=== PATIENT | female | born 1965 | race African-American/Black ===

== ENCOUNTER 2019-09-22 21:32 | Inpatient (IN) | payer OTHER, MEDICAID ==
[~2019-09-22] VITALS: Ht 144.8 cm; Wt 72.6 kg
[2019-09-23] MEDS ORDERED: CLONIDINE 0.2MG TABLET PO ONE (00:45)
[2019-09-23] MEDS ORDERED: HYDROCHLOROTHIAZIDE 25MG TABLET PO ONE (00:45)
[2019-09-23 01:11] LABS: CHLORIDE 104 mEq/L (98-107)
[2019-09-23 01:17] LABS: BASOPHILS % 0.7 % (0.0-2.0); EOSINOPHILS % 0.5 % (0.0-5.0); HEMATOCRIT. 44.4 % (36.0-48.0); HEMOGLOBIN. 14.6 g/dL (12.0-16.0); LYMPHOCYTES % 20.1 % (20.0-50.0); MEAN CORPUSCULAR HEMOGLOBIN 32.6 pg (28.0-32.0); MEAN CORPUSCULAR VOLUME 99.3 fL (81.0-99.0); MEAN PLATELET VOLUME 9.8 fl (7.4-10.4); MONOCYTES % 4.7 % (2.0-8.0); PLATELET 220 x1000/uL (130-400); RED BLOOD CELL COUNT 4.47 mill/uL (4.2-5.4); RED CELL DISTRIBUTION WIDTH 17.3 % (11.6-14.6)
[2019-09-23] MEDS ORDERED: LABETALOL 5MG/ML SYR 20 MG/4 ML SYRINGE IV SCH (02:00)
[2019-09-23 05:30] VITALS: BP 157/107
[2019-09-23 06:51] VITALS: BP 157/107
[2019-09-23] MEDS ORDERED: MAGNESIUM/ALUMINUM HYDROXIDE/SIMETHICONE 30ML UDC PO PRN (07:45)
[2019-09-23] MEDS ORDERED: ONDANSETRON HCL 4MG/2ML INJ IV PRN (07:45)
[2019-09-23] MEDS ORDERED: NA PHOS,M-B/NA PHOS,DI-BA ENEMA 118ML PR PRN (07:45)
[2019-09-23] MEDS ORDERED: GUAIFENESIN 200MG/10ML SUGAR FREE UDC PO PRN (07:45)
[2019-09-23] MEDS ORDERED: DIPHENHYDRAMINE 50MG/ML VIAL IV PRN (07:45)
[2019-09-23] MEDS ORDERED: IPRATROPIUM/ALBUTEROL 0.5-3(2.5)MG/3ML NEB HHN PRN (07:45)
[2019-09-23] MEDS ORDERED: DOCUSATE SODIUM 100MG CAPSULE PO PRN (07:45)
[2019-09-23] MEDS ORDERED: AMLODIPINE 10MG TABLET PO SCH (08:00)
[2019-09-23] MEDS ORDERED: INFLUENZA VIRUS VACCINE(AFLURIA) 0.5ML SYR IM ONE (08:15)
[2019-09-23] MEDS ORDERED: METOPROLOL TARTRATE 25MG TABLET PO SCH (09:00)
[2019-09-23] MEDS: CLONIDINE 0.1MG TABLET PO PRN (09:05)
[2019-09-23] MEDS: ENOXAPARIN 40MG/0.4ML SYR SUBCUT SCH (11:03)
[2019-09-23] MEDS: BENAZEPRIL 10MG TABLET PO SCH (11:30)
[2019-09-23 11:39] LABS: CREATINE KINASE MB FRACTION 2.8 ng/mL (0.5-3.6)
[2019-09-23 11:40] LABS: T4 FREE 1.73 ng/dL (0.76-1.46)
[2019-09-23 12:21] VITALS: BP 154/86
[2019-09-23] MEDS: SODIUM CHLORIDE 0.9% INJ 3ML FLUSH IVF SCH ×2 (14:00→21:42)
[2019-09-23 16:08] VITALS: BP 167/95
[2019-09-23 16:51] LABS: CREATINE KINASE MB FRACTION 2.5 ng/mL (0.5-3.6)
[2019-09-23] MEDS: HYDROCHLOROTHIAZIDE 25MG TABLET PO SCH (17:30)
[2019-09-23] MEDS ORDERED: DIPHENHYDRAMINE 25MG CAPSULE PO PRN (17:30)
[2019-09-23] MEDS: HYDRALAZINE 20MG/ML VIAL IV PRN (17:57)
[2019-09-23 20:00] VITALS: BP 142/75
[2019-09-23] MEDS: CLONAZEPAM 0.5MG TABLET PO SCH (21:41)
[2019-09-24] VITALS (7 sets, daily range): BP systolic 153–192; BP diastolic 78–112
[2019-09-24] MEDS: HYDRALAZINE 20MG/ML VIAL IV PRN (01:33)
[2019-09-24] MEDS: CLONIDINE 0.1MG TABLET PO PRN (03:47)
[2019-09-24] MEDS: SODIUM CHLORIDE 0.9% INJ 3ML FLUSH IVF SCH ×2 (05:11→15:18)
[2019-09-24 08:20] LABS: BASOPHILS % 0.5 % (0.0-2.0); EOSINOPHILS % 0.9 % (0.0-5.0); HEMATOCRIT. 43.8 % (36.0-48.0); HEMOGLOBIN. 14.4 g/dL (12.0-16.0); MEAN CORPUSCULAR HEMOGLOBIN 32.5 pg (28.0-32.0); MEAN CORPUSCULAR VOLUME 98.8 fL (81.0-99.0); MEAN PLATELET VOLUME 9.9 fl (7.4-10.4); MONOCYTES % 5.9 % (2.0-8.0); NEUTROPHILS % 72.7 % (40.0-76.0); PLATELET 214 x1000/uL (130-400); RED BLOOD CELL COUNT 4.43 mill/uL (4.2-5.4); RED CELL DISTRIBUTION WIDTH 17.5 % (11.6-14.6)
[2019-09-24] MEDS: HYDROCHLOROTHIAZIDE 25MG TABLET PO SCH (08:23)
[2019-09-24] MEDS: CLONAZEPAM 0.5MG TABLET PO SCH (08:23)
[2019-09-24] MEDS: BENAZEPRIL 10MG TABLET PO SCH (08:23)
[2019-09-24] MEDS: ENOXAPARIN 40MG/0.4ML SYR SUBCUT SCH (08:24)
[2019-09-24 08:33] LABS: CHLORIDE 102 mEq/L (98-107)
[2019-09-24 08:44] LABS: LDL CHOLESTEROL 154 mg/dL (5-100)
[2019-09-24 08:46] LABS: HDL CHOLESTEROL 30 mg/dL (40-59)
[2019-09-24 10:12] LABS: CLARITY URINE CLEAR (CLEAR); COLOR URINE YELLOW (YELLOW); KETONES URINE NEGATIVE (NEGATIVE); LEUKOCYTE ESTERASE URINE NEGATIVE (NEGATIVE); NITRITE URINE NEGATIVE (NEGATIVE); OCCULT BLOOD URINE NEGATIVE (NEGATIVE); PROTEIN URINE 2+ (NEGATIVE); SPECIFIC GRAVITY URINE 1.011 (1.005-1.030)
[2019-09-24 10:32] LABS: *AMPHETAMINES SCREEN URINE NEGATIVE (NEGATIVE); *BARBITURATES SCREEN URINE NEGATIVE (NEGATIVE); *BENZODIAZEPINES SCREEN URINE NEGATIVE (NEGATIVE); *COCAINE SCREEN URINE NEGATIVE (NEGATIVE)
[2019-09-24 10:33] LABS: CANNABINOID URINE SCREEN PRESUMTIVE POSITIVE (NEGATIVE); METHADONE URINE SCREEN NEGATIVE (NEGATIVE); OPIATES URINE SCREEN NEGATIVE (NEGATIVE); PHENCYCLIDINE URINE SCREEN NEGATIVE (NEGATIVE)
[2019-09-24] MEDS ORDERED: LOT10 PO (13:12)
[2019-09-24] MEDS ORDERED: AMLO5TAB4 MT (13:12)
[2019-09-24] MEDS ORDERED: AMLODIPINE 10MG TABLET PO NR (13:15)
[2019-09-24] MEDS ORDERED: ATOR10TA MT (14:26)
[2019-09-24] MEDS ORDERED: ASPI-986 MT (14:28)
[2019-09-24] MEDS ORDERED: POTASSIUM CHLORIDE 10MEQ TABLET SR PO NR (14:30)
== END 2019-09-24 16:30 | disposition home or self-care (01) | DRG 199 ==
LOC: ER 21:32 → 8WST 09-23 01:57 → ENRESERV 09-23 04:39
PROVIDERS: ADMIT Family Medicine; ATTEND Family Medicine
DX: I16.1 Hypertensive emergency (principal); I13.10 Hypertensive heart and chronic kidney disease without heart failure, with stage 1 through stage 4 chronic kidney disease, or unspecified chronic kidney disease; E78.5 Hyperlipidemia, unspecified; R73.9 Hyperglycemia, unspecified; N18.9 Chronic kidney disease, unspecified; F17.210 Nicotine dependence, cigarettes, uncomplicated; F12.90 Cannabis use, unspecified, uncomplicated; Z82.49 Family history of ischemic heart disease and other diseases of the circulatory system; Z88.6 Allergy status to analgesic agent; Z88.8 Allergy status to other drugs, medicaments and biological substances; Z90.49 Acquired absence of other specified parts of digestive tract; Z71.6 Tobacco abuse counseling
CPT/HCPCS: 36415; 71045; 76770; 80061; 80305; 81003; 82550; 82553; 83036; 83880; 84439; 84443; 84484; 85379; 90686; 93005; 93306; 93970; 96374; 99285; 99406; J0360; J1650; J3490